=== PATIENT | male | born 1980 | race Caucasian/White ===

== ENCOUNTER 2021-05-27 14:40 | Emergency (ER) | payer BC, OTHER ==
[2021-05-27 14:55] VITALS: BP 132/93; PULSE 88; TEMP 98.7; BMI 25.7
== END 2021-05-27 18:34 | disposition home or self-care (01) ==
LOC: FER 14:40
DX: R07.9 Chest pain, unspecified (principal)
CPT/HCPCS: 36415; 84484; 93005; 99284-25